=== PATIENT | male | born 1965 | race Caucasian/White ===

== ENCOUNTER → 2024-08-03 14:27 | Outpatient (REF) | payer OTHER, SELFPAY | LOC: PAVMRI 14:27 | PROVIDERS: ATTENDING PHYSICIAN Orthopaedic Surgery; FAMILY PHYSICIAN Family Medicine | DX: M25.562 Pain in left knee (principal) | CPT/HCPCS: 73721 ==

== ENCOUNTER 2024-11-05 06:19 | Day surgery (SDC) | payer OTHER, SELFPAY ==
[2024-10-30 13:04] VITALS: BMI 47.0
[2024-11-05] VITALS (9 sets, daily range): BP systolic 122–148; BP diastolic 78–87; BMI 47.0
[2024-11-05] MEDS: TYLENOL 1000 MG PO (11:56)
[2024-11-05] MEDS: CELEBREX 200 MG PO (11:57)
== END 2024-11-05 15:28 | disposition home or self-care (01) ==
LOC: SDS 06:19
PROVIDERS: ATTENDING PHYSICIAN Orthopaedic Surgery; FAMILY PHYSICIAN Family Medicine
DX: S83.242A Other tear of medial meniscus, current injury, left knee, initial encounter (principal); W19.XXXA Unspecified fall, initial encounter
CPT/HCPCS: 29881; 36415; 93005

== ENCOUNTER → 2025-01-30 07:27 | Outpatient (REF) | payer OTHER, SELFPAY | LOC: PAVMRI 07:27 | PROVIDERS: ATTENDING PHYSICIAN Orthopaedic Surgery; FAMILY PHYSICIAN Family Medicine | DX: M25.562 Pain in left knee (principal) | CPT/HCPCS: 73721 ==

== ENCOUNTER 2025-02-03 06:20 | Day surgery (SDC) | payer OTHER, SELFPAY | END 2025-02-03 12:51 | disposition home or self-care (01) | LOC: GI 06:20 | PROVIDERS: ATTENDING PHYSICIAN Specialist | DX: Z12.11 Encounter for screening for malignant neoplasm of colon (principal); K62.5 Hemorrhage of anus and rectum; K57.30 Diverticulosis of large intestine without perforation or abscess without bleeding; K64.8 Other hemorrhoids; K64.4 Residual hemorrhoidal skin tags; D12.2 Benign neoplasm of ascending colon; D12.3 Benign neoplasm of transverse colon; Z86.0101 Personal history of adenomatous and serrated colon polyps | CPT/HCPCS: 45385; 88305 ==